=== PATIENT | male | born 1950 | race Caucasian/White ===

== ENCOUNTER → 2022-06-29 | Outpatient (REF) | payer MEDICARE, OTHER ==
[~2022-06-29] MED LIST: AMLO10TAB OR; ASPI325T OR; ATEN100T OR; BENI20TA11 OR; CO Q10 PO; EPLERENONE PO; FISH300C2 PO; FLEXERIL PO; GLUC500T3 PO; HYDROCODONE/APAP PO; IBUP800T OR; MAGN250T OR; POTA99TA OR; VITA-56 OR; VITA500T OR; [UNRECOGNIZED DRUG - OTHER] OR; saw palmetto PO
[2022-06-30 23:07] LABS: PSA % FREE 16.9 % (.); PSA FREE 0.81 ng/mL; PSA TOTAL 4.8 ng/mL (0.0-4.0)
== END ==
LOC: M LAB REF 12:04
PROVIDERS: ATTEND Nurse Practitioner Adult Health
DX: R97.20 Elevated prostate specific antigen [PSA] (principal)

== ENCOUNTER → 2022-07-26 | Outpatient (CLI) | payer MEDICARE, OTHER | LOC: M RAD 08:20 | PROVIDERS: ATTEND Orthopaedic Surgery | DX: M54.50 Low back pain, unspecified (principal); M51.86 Other intervertebral disc disorders, lumbar region ==